=== PATIENT | male | born 1965 | race African-American/Black ===

== ENCOUNTER 2025-05-23 11:58 | Emergency (ER) | payer BC, MEDICAID ==
[~2025-05-23] VITALS: Ht 180.3 cm; Wt 85.0 kg
[2025-05-23 12:02] VITALS: O2SAT 99
[2025-05-23 13:45] LABS: BASOPHILS % 0.8 % (0.0-2.0); EOSINOPHILS % 1.4 % (0.0-5.0); HEMATOCRIT. 44.0 % (42.0-52.0); HEMOGLOBIN. 14.7 g/dL (14.0-18.0); LYMPHOCYTES % 24.3 % (20.0-50.0); MEAN PLATELET VOLUME 7.8 fl (7.4-10.4); MONOCYTES % 8.0 % (2.0-8.0); NEUTROPHILS % 65.5 % (40.0-76.0); PLATELET 251 x1000/uL (130-400); RED BLOOD CELL COUNT 4.69 mill/uL (4.7-6.1); RED CELL DISTRIBUTION WIDTH 16.0 % (11.6-14.6)
[2025-05-23] MEDS: ACETAMINOPHEN 325MG TABLET PO STA (13:45)
[2025-05-23] MEDS: HYDRALAZINE 20MG/ML VIAL IV ONE (13:46)
[2025-05-23 13:51] LABS: INR 1.0
[2025-05-23 13:56] LABS: CREATININE 1.1 mg/dL (0.6-1.3); ETHANOL BLOOD < 10 mg/dL (<10); UREA NITROGEN BLOOD 16 mg/dL (9-23)
[2025-05-23 13:57] LABS: TROPONIN I HIGH SENSITIVITY 36 ng/L (3.0-53)
[2025-05-23] MEDS ORDERED: AMLO10TA80 MT (16:02)
[2025-05-23 16:15] VITALS: BP 174/92; PULSE 71; RESP 18; TEMP 36.7; O2SAT 97
== END 2025-05-23 16:53 | disposition home or self-care (01) ==
LOC: ER 11:58
DX: I10 Essential (primary) hypertension (principal); F10.90 Alcohol use, unspecified, uncomplicated; R51.9 Headache, unspecified; Z79.899 Other long term (current) drug therapy; Z87.891 Personal history of nicotine dependence; Z91.148 Patient's other noncompliance with medication regimen for other reason; Y90.9 Presence of alcohol in blood, level not specified
CPT/HCPCS: 80048; 80320; 85025; 85610; 86850; 86900; 86901; 84484; 36415; 70450; 93005; 96374; 99285; J0360; Z7610 ×2; A4606; G0480